=== PATIENT | male | born 1950 ===

== ENCOUNTER → 2017-09-13 | Outpatient (REF) | payer MEDICARE ==
[2017-09-13 10:00] LABS: PLATELET COUNT, AUTOMATED 164 K/uL (150-450)
== END ==
LOC: ZZSTITCHES 09:48
PROVIDERS: ATTEND Physician Assistant
DX: R50.9 Fever, unspecified (principal); R51 Headache
CPT/HCPCS: 82040; 82247; 82310; 82374; 82435; 82565; 82947; 84075; 84132; 84155; 84295; 84450; 84460; 84520; 85025

== ENCOUNTER → 2018-08-17 | Outpatient (REF) | payer MEDICARE ==
[2018-08-17 10:17] LABS: PLATELET COUNT, AUTOMATED 201 K/uL (150-450)
== END ==
LOC: ZZSTITCHES 09:57
PROVIDERS: ATTEND Physician Assistant
DX: R07.89 Other chest pain (principal); R53.83 Other fatigue; I10 Essential (primary) hypertension
CPT/HCPCS: 36415; 82040; 82247; 82310; 82374; 82435; 82565; 82947; 83036; 84075; 84132; 84155; 84295; 84443; 84450; 84460; 84484; 84520; 85025; 86140